=== PATIENT | male | born 1970 | race Hispanic/Latino ===

== ENCOUNTER 2022-11-21 17:54 | Observation (INO) | payer SELFPAY ==
[2022-11-21] MEDS ORDERED: TRANDATE 20 MG/4 ML SYRINGE IV ONE ×2 (18:06→18:15)
[2022-11-21] MEDS ORDERED: BABY ASPIRIN 81 MG CHEW PO ONE (18:06)
[2022-11-21] MEDS ORDERED: MORPHINE SULFATE 4 MG INJ IV ONE (18:06)
[2022-11-21] MEDS ORDERED: NITRO-BID 2% UD PACKETS TOP ONE (18:06)
[2022-11-21] MEDS ORDERED: MORPHINE SULFATE 4 MG INJ ONE (18:15)
[2022-11-21] MEDS ORDERED: Sodium Chloride 0.9% 1000 ML 1,000 ML IV SCH (18:15)
[2022-11-21] MEDS ORDERED: NITRO-BID 2% UD PACKETS ONE (18:15)
--- NOTE | 2022-11-21 18:16 | ERPHSYRPT ---
<PETER PAYTON - Last Filed: 11/21/22 19:06> - History of Present Illness Time Seen by Provider: 11/21/22 18:14 Historian: patient, family Exam Limitations: no limitations Patient Subjective Stated Complaint: C/O chest discomfort that radiates into left arm and left shoulder. Patient states it started around 12noon today when shopping at [place]. Triage Nursing Assessment: Patient ambulated back to ER. He is alert and oriented. No SOB. Skin is warm to touch and moist. M[place]ONOUGH WNL. No edema. No JVD. Physician History: C/O chest discomfort that radiates into left arm and left shoulder. Patient states it started around 12noon today when shopping at [place]. Timing/Duration: today Activities at Onset: activity Quality: pressure Location: substernal Chest Pain Radiation: arm Severity of Pain-Max: moderate Severity of Pain-Current: moderate Modifying Factors: Improves With: nothing Associated Symptoms: headache, No nausea, No vomiting, No palpitations, No heartburn, No shortness of breath, No cough, No hurts to breathe, No diaphoresis, No weakness, No swelling/lump in chest Prior Chest Pain/Cardiac Workup: no prior chest pain Nitro Today/Relief: no nitro taken today Aspirin Treatment Today: no aspirin today Allergies/Adverse Reactions: No Known Drug Allergies Allergy (Verified 11/21/22 17:58) Home Medications: No Reportable Medications [No Reported Medications] 11/21/22 [History] Hx Influenza Vaccination/Date Given: No Travel Risk - International Travel Have you traveled outside of the country in past 3 weeks: No - Coronavirus Screening Are you exhibiting any of the following symptoms?: No Close contact with a COVID-19 positive Pt in past 14-21 Days: No - Vaccine Status Have you recieved a Covid-19 vaccination: No - Review of Systems Constitutional: No Fever, No Chills Eyes: No Symptoms Ears, Nose, & Throat: No Symptoms Respiratory: No Cough, No Dyspnea Cardiac: Chest Pain, No Edema, No Syncope Abdominal/Gastrointestinal: No Abdominal Pain, No Nausea, No Vomiting, No Diarrhea Genitourinary Symptoms: No Dysuria Musculoskeletal: No Back Pain, No Neck Pain Skin: No Rash Neurological: No Dizziness, No Focal Weakness, No Sensory Changes Psychological: No Symptoms Endocrine: No Symptoms All Other Systems: Reviewed and Negative - Past Medical History Pertinent Past Medical History: Yes Cardiac History: Hypertension - Past Surgical History Past Surgical History: No Other Surgical History: No surgical history - Social History Smoking Status: Never smoker Exposure to second hand smoke: No Drug Use: none Patient Lives Alone: No - Physical Exam General Appearance: no apparent distress, alert Eye Exam: PERRL/EOMI, eyes nml inspection Ears, Nose, Throat Exam: normal ENT inspection, moist mucous membranes Neck Exam: normal inspection, non-tender, supple, full range of motion Respiratory Exam: normal breath sounds, lungs clear, No respiratory distress Cardiovascular Exam: regular rate/rhythm, normal heart sounds Gastrointestinal/Abdomen Exam: soft, No tenderness, No mass Back Exam: normal inspection, No CVA tenderness, No vertebral tenderness Extremity Exam: normal inspection, normal range of motion Neurologic Exam: alert, oriented x 3, cooperative, normal mood/affect, sensation nml, No motor deficits Skin Exam: normal color, warm, dry SpO2: 98 - Course Nursing assessment & vital signs reviewed: Yes EKG Interpreted by Me: Sinus Rhythm, Left Bundle Branch Block, Non-specific ST Changes Rhythm Strip: Normal Sinus Rhythm - Radiology Exams Chest X-ray Interpretation: Reviewed by me - Departure Clinical Impression: Hypertensive urgency, Chest pain, rule out acute myocardial infarction Condition: Stable <CARLOZ GURROLA - Last Filed: 11/21/22 20:47> - Nursing Vital Signs Nursing Vital Signs: Initial Vital Signs Temperature 99.7 F 11/21/22 18:00 Pulse Rate 96 H 11/21/22 18:00 Respiratory Rate 18 11/21/22 18:00 Blood Pressure 271/138 11/21/22 18:00 O2 Sat by Pulse Oximetry 98 11/21/22 18:00 Pain Scale Pain Intensity 0 Ordered Tests: Active Orders 24 hr Category Date Time Status Lifestyle Consultant STAT Care 11/21/22 18:08 Active EKG-ER Only STAT Care 11/21/22 18:06 Active Oxygen-ED Only Nasal Cannula 2 lpm Care 11/21/22 18:06 Active CHEST 1 VIEW (PORTABLE) Stat Exams 11/21/22 18:08 Completed CBC W DIFF Stat Lab 11/21/22 18:20 Completed CMP Stat Lab 11/21/22 18:20 Completed NT PRO BNPII Stat Lab 11/21/22 18:20 Completed TROPONIN Q4H Lab 11/21/22 18:20 Completed TROPONIN Q4H Lab 11/21/22 22:15 Ordered TROPONIN Q4H Lab 11/22/22 02:15 Ordered Medication Summary Generic Name Dose Route Start Last Admin Trade Name Freq PRN Reason Stop Dose Admin Hydralazine HCl 10 mg 11/21/22 18:37 Hydralazine Hcl 20 Mg/Ml Vial IV 12/21/22 18:36 [id number] PRN HYPERTENSION Sodium Chloride 1,000 mls @ 50 mls/hr 11/21/22 18:15 11/21/22 18:22 Sodium Chloride 0.9% 1000 Ml IV 12/21/22 18:14 50 mls/hr .Q20H MARQUIS Administration Nicardipine HCl 25 mg/ Sodium 250 mls @ 50 mls/hr 11/21/22 19:38 Chloride IV 12/21/22 19:37 .Q5H PRN HYPERTENSION Protocol Discontinued Medications Generic Name Dose Route Start Last Admin Trade Name Freq PRN Reason Stop Dose Admin Aspirin 81 mg 11/21/22 18:06 11/21/22 18:14 Aspirin 81 Mg Tab.Chew PO 11/21/22 18:07 Not Given STAT ONE Labetalol HCl 10 mg 11/21/22 18:06 11/21/22 18:22 Labetalol Hcl 20 Mg/4 Ml Disp.Syringe IV 11/21/22 18:07 10 mg STAT ONE Administration Labetalol HCl Confirm 11/21/22 18:15 Labetalol Hcl 20 Mg/4 Ml Disp.Syringe Administered 11/21/22 18:16 Dose 20 mg IV .STK-MED ONE Morphine Sulfate 4 mg 11/21/22 18:06 11/21/22 18:29 Morphine Sulfate 4 Mg/Ml Injection IV 11/21/22 18:07 4 mg STAT ONE Administration Morphine Sulfate Confirm 11/21/22 18:15 Morphine Sulfate 4 Mg/Ml Injection Administered 11/21/22 18:16 Dose 4 mg .ROUTE .STK-MED ONE Nitroglycerin 1 gm 11/21/22 18:06 11/21/22 18:26 Nitroglycerin 1 Gm Packet TOP 11/21/22 18:07 1 gm STAT ONE Administration Nitroglycerin Confirm 11/21/22 18:15 Nitroglycerin 1 Gm Packet Administered 11/21/22 18:16 Dose 1 gm .ROUTE .STK-MED ONE Lab/Rad Data: Laboratory Result Diagrams 11/21/22 18:20 11/21/22 18:20 Laboratory Results 11/21/22 11/21/22 11/21/22 Range/Units 18:20 18:20 18:20 WBC (4.0-10.5) x10^3/uL RBC (4.1-5.6) x10^6/uL Hgb (12.5-18.0) g/dL Hct (42-50) % MCV (78-100) fL MCH (26-32) pg MCHC (32-36) g/dL RDW (11.5-14.0) % Plt Count (150-450) x10^3/uL MPV (7.5-11.0) fL Gran % (36.0-66.0) % Immature Gran % (Auto) (0.00-0.4) % Nucleat RBC Rel Count (0.00-0.1) % Eos # (Auto) (0-0.5) x10^3/uL Immature Gran # (Auto) (0.00-0.03) x10^3u/L Absolute Lymphs (auto) (1.0-4.6) x10^3/uL Absolute Monos (auto) (0.0-1.3) x10^3/uL Absolute Nucleated RBC (0.00-0.01) x10^3u/L Lymphocytes % (24.0-44.0) % Monocytes % (0.0-12.0) % Eosinophils % (0.00-5.0) % Basophils % (0.0-0.4) % Absolute Granulocytes (1.4-6.9) x10^3/uL Basophils # (0-0.4) x10^3/uL Sodium 141 (137-145) mmol/L Potassium 3.1 L (3.5-5.1) mmol/L Chloride 102 (98-107) mmol/L Carbon Dioxide 30 (22-30) mmol/L Anion Gap 12.1 (5-15) MEQ/L BUN 16 (9-20) mg/dL Creatinine 1.04 (0.66-1.25) mg/dL Estimated GFR > 60.0 ML/MIN Glucose 119 H (74-106) mg/dL Calcium 8.9 (8.4-10.2) mg/dL Total Bilirubin 0.50 (0.2-1.3) mg/dL AST 32 (17-59) U/L ALT 21 (0-50) U/L Alkaline Phosphatase 88 (38-126) U/L Troponin I 0.031 (0.000-0.034) ng/mL NT-Pro-B Natriuret Pep 562 (<300) pg/mL Serum Total Protein 7.9 (6.3-8.2) g/dL Albumin 4.5 (3.5-5.0) g/dL 11/21/22 Range/Units 18:20 WBC 5.4 (4.0-10.5) x10^3/uL RBC 4.64 (4.1-5.6) x10^6/uL Hgb 14.4 (12.5-18.0) g/dL Hct 42.2 (42-50) % MCV 90.9 (78-100) fL MCH 31.0 (26-32) pg MCHC 34.1 (32-36) g/dL RDW 12.8 (11.5-14.0) % Plt Count 188 (150-450) x10^3/uL MPV 10.8 (7.5-11.0) fL Gran % 66.9 H (36.0-66.0) % Immature Gran % (Auto) 0.4 (0.00-0.4) % Nucleat RBC Rel Count 0.0 (0.00-0.1) % Eos # (Auto) 0.02 (0-0.5) x10^3/uL Immature Gran # (Auto) 0.02 (0.00-0.03) x10^3u/L Absolute Lymphs (auto) 1.36 (1.0-4.6) x10^3/uL Absolute Monos (auto) 0.35 (0.0-1.3) x10^3/uL Absolute Nucleated RBC 0.00 (0.00-0.01) x10^3u/L Lymphocytes % 25.1 (24.0-44.0) % Monocytes % 6.5 (0.0-12.0) % Eosinophils % 0.4 (0.00-5.0) % Basophils % 0.7 (0.0-0.4) % Absolute Granulocytes 3.62 (1.4-6.9) x10^3/uL Basophils # 0.04 (0-0.4) x10^3/uL Sodium (137-145) mmol/L Potassium (3.5-5.1) mmol/L Chloride (98-107) mmol/L Carbon Dioxide (22-30) mmol/L Anion Gap (5-15) MEQ/L BUN (9-20) mg/dL Creatinine (0.66-1.25) mg/dL Estimated GFR ML/MIN Glucose (74-106) mg/dL Calcium (8.4-10.2) mg/dL Total Bilirubin (0.2-1.3) mg/dL AST (17-59) U/L ALT (0-50) U/L Alkaline Phosphatase (38-126) U/L Troponin I (0.000-0.034) ng/mL NT-Pro-B Natriuret Pep (<300) pg/mL Serum Total Protein (6.3-8.2) g/dL Albumin (3.5-5.0) g/dL - Progress Progress: improved, re-examined Air Movement: good Progress Note: 11/21/22 20:43 52-year-old is checked out to me at shift change from with uncontrolled hypertension and chest pain. Patient is given labetalol/hydralazine/Nitropaste, chest pain improved but still have blood pressure in 200s. Denies any headache. Nonfocal neuro exam during my evaluation. EKG did not show any ST elevation and negative initial troponins. Patient does not take any blood pressure medications at home. I have started him on Cardene. I believe patient would benefit with admission and monitoring blood pressure, starting on oral medications. I have discussed with Dr. Barragan, reviewed history, work-up and patient is excepted for admission. I have discussed the results of work-up with patient and family, recommended admission which they understand and agree. Blood Culture(s) Obtained: No Antibiotics given: No Discussed with : Other (Dr. Preston 2020 5 PM) Will see patient in: hospital (observation) Counseled pt/family regarding: lab results, diagnosis, rad results Medical Desision Making - Independent Historian Additional History obtained from: Spouse - Discussion of managment Care discussed with:: hospitalist (Dr. Barragan 2024) Reviewed:: Test results Agreed on:: Treatment plan, place in obs Will see patient: in hospital - Diagnostic Testing Diagnostic test were ordered, analyzed, and reviewed by me: Yes Radiological Interpretation: Reviewed by me - Risk of complications The pt has a high risk of morbidity or mortality based on: Decision regarding hospitilization or escalation of hosp level of care - Departure Departure Disposition: Observation Critical Care Time: No
[2022-11-21 18:27] LABS: Absolute Neutrophil Ct (ANC) 3.62 x10^3/uL (1.4-6.9); BASOPHIL % 0.7 % (0.0-0.4); Basophil (Absolute #) 0.04 x10^3/uL (0-0.4); Eosinophil % 0.4 % (0.00-5.0); Eosinophil (Absolute #) 0.02 x10^3/uL (0-0.5); Hematocrit 42.2 % (42-50); Hemoglobin 14.4 g/dL (12.5-18.0); IMMATURE GRAN # 0.02 x10^3u/L (0.00-0.03); IMMATURE GRAN % 0.4 % (0.00-0.4); Lymphocyte (Absolute #) 1.36 x10^3/uL (1.0-4.6); Lymphocytes % 25.1 % (24.0-44.0); Mean Cell Volume 90.9 fL (78-100); Mean Corpuscular Hgb Concent. 34.1 g/dL (32-36); Mean Platelet Volume 10.8 fL (7.5-11.0); Monocyte (Absolute #) 0.35 x10^3/uL (0.0-1.3); Monocytes % 6.5 % (0.0-12.0); Neutrophil % 66.9 % (36.0-66.0); Platelet Count 188 x10^3/uL (150-450); Red Blood Count 4.64 x10^6/uL (4.1-5.6); Red Cell Distribution Width 12.8 % (11.5-14.0); White Blood Count 5.4 x10^3/uL (4.0-10.5)
[2022-11-21] MEDS ORDERED: APRESOLINE 20 MG/ML INJ IV PRN (18:37)
[2022-11-21 18:42] LABS: ALBUMIN 4.5 g/dL (3.5-5.0); ALKALINE PHOSPHATASE 88 U/L (38-126); ANION GAP 12.1 MEQ/L (5-15); BLOOD UREA NITROGEN 16 mg/dL (9-20); CHLORIDE 102 mmol/L (98-107); Calcium 8.9 mg/dL (8.4-10.2); Carbon Dioxide 30 mmol/L (22-30); Creatinine 1 1.04 mg/dL (0.66-1.25); EST GLOMERULAR FILTRATION RATE > 60.0 ML/MIN; Glucose 119 mg/dL (74-106); Potassium 3.1 mmol/L (3.5-5.1); SGOT/AST 32 U/L (17-59); SGPT/ALT 21 U/L (0-50); SODIUM 141 mmol/L (137-145); Total Protein 7.9 g/dL (6.3-8.2)
[2022-11-21] MEDS ORDERED: CARDENE*** 25 MG in Sodium Chloride 0.9% 250 ML 240 ML IV PRN (19:38)
--- NOTE | 2022-11-21 20:09 | XRAY ---
Indication: Chest pain. Comparison: None Portable apical lordotic chest demonstrates normal heart and lungs. Bony thorax intact.
[2022-11-21] MEDS ORDERED: Sodium Chloride 0.9% 250 ML 250 ML IV ONE (20:52)
[2022-11-21] MEDS ORDERED: CARDENE IV ONE (20:52)
[2022-11-21] MEDS ORDERED: MORPHINE SULFATE 2 MG INJ IV PRN (22:21)
[2022-11-21] MEDS ORDERED: DUONEB 0.5-3 MG/3 ml Neb IH PRN (22:21)
[2022-11-21] MEDS ORDERED: Zofran 4 MG/2 ML VIAL IV PRN (22:21)
[2022-11-21] MEDS ORDERED: TYLENOL 325 MG PO PRN (22:21)
[2022-11-22] MEDS ORDERED: K-LYTE PO ONE (00:24)
--- NOTE | 2022-11-22 00:33 | PCM.HP ---
History of Present Illness - Chief Complaint Chief Complaint: Hypertensive urgency. Chest pain rule out acute DE Date: 11/22/22 History of Present Illness: This is a 52-year-old male admitted to the ICU this evening for hypertensive emergency. He has a past medical history of untreated hypertension. He presented to the ED this evening with complaints of chest discomfort 3/10 that radiated to his left arm and his left shoulder that started approximately 6 hours before arrival this was associated with dizziness. He reports he was on antihypertensives 2 years ago but stopped them. Initial vital signs in the ER temperature 99.7, heart rate 96, respiratory rate 18, blood pressure 271/138, blood pressure taken 6 minutes later was 236/123, sat 98%. Labs significant for WBC 5.4, hemoglobin 14, platelets 188, sodium 141, potassium 3.1, creatinine 1.0, troponin 0.031, BNP 562. In the ED he received labetalol 10 mg IV x1, aspirin 81 mg, morphine 4 mg, hydralazine 10 mg nitroglycerin topical and started on a Cardene drip. - Review of Systems Eyes: No Symptoms Ears, Nose, & Throat: No Symptoms Respiratory: No Symptoms Cardiac: Chest Pain Abdominal/Gastrointestinal: No Symptoms Genitourinary Symptoms: No Symptoms Musculoskeletal: No Symptoms Skin: No Symptoms Neurological: No Symptoms Psychological: No Symptoms Endocrine: No Symptoms Hematologic/Lymphatic: No Symptoms Immunological/Allergic: No Symptoms Medications & Allergies Home Medications: Home Medication List No Reportable Medications [No Reported Medications] 11/21/22 [History Confirmed 11/21/22] Allergies/Adverse Reactions: Allergies Allergy/AdvReac Type Severity Reaction Status Date / Time No Known Drug Allergies Allergy Verified 11/21/22 17:58 - Past Medical History Past Medical History: Yes Cardiac History: Hypertension - Past Surgical History Past Surgical History: No Other Surgical History: No surgical history - Social History Smoking Status: Never smoker Exposure to second hand smoke: No Alcohol: None Drug Use: none - Physical Exam Vital Signs: Vital Signs - 24 hr Temp Pulse Resp BP BP Pulse Ox 11/21/22 22:05 99.7 F 93 H 18 164/92 97 11/21/22 21:50 195/115 11/21/22 21:40 127 H 22 172/108 11/21/22 21:30 104 H 29 H 171/96 11/21/22 21:20 95 H 18 165/86 11/21/22 21:10 78 12 174/94 98 11/21/22 21:03 80 17 176/107 98 11/21/22 21:00 70 13 177/103 98 11/21/22 20:45 71 15 191/106 99 11/21/22 20:30 68 14 184/113 98 11/21/22 20:15 72 13 187/108 187/108 98 11/21/22 20:00 74 13 188/105 96 11/21/22 19:45 70 11 L 200/105 95 11/21/22 19:30 71 16 178/106 96 11/21/22 19:15 63 12 192/105 95 11/21/22 19:06 98 11/21/22 19:00 66 12 208/113 96 11/21/22 18:45 71 14 208/124 93 L 11/21/22 18:30 83 18 212/112 97 11/21/22 18:15 83 16 221/124 96 11/21/22 18:06 236/123 98 11/21/22 18:00 99.7 F 96 H 18 271/138 98 General Appearance: no apparent distress Neurologic Exam: alert, oriented x 3 Eye Exam: PERRL/EOMI Ears, Nose, Throat Exam: normal ENT inspection Respiratory Exam: normal breath sounds Cardiovascular Exam: regular rate/rhythm Gastrointestinal/Abdomen Exam: soft Extremity Exam: normal inspection Skin Exam: normal color Results - Labs Lab/Micro Results: Lab Results-Last 24 Hours 11/21/22 11/21/22 11/21/22 Range/Units 18:20 18:20 18:20 WBC 5.4 (4.0-10.5) x10^3/uL RBC 4.64 (4.1-5.6) x10^6/uL Hgb 14.4 (12.5-18.0) g/dL Hct 42.2 (42-50) % MCV 90.9 (78-100) fL MCH 31.0 (26-32) pg MCHC 34.1 (32-36) g/dL RDW 12.8 (11.5-14.0) % Plt Count 188 (150-450) x10^3/uL MPV 10.8 (7.5-11.0) fL Gran % 66.9 H (36.0-66.0) % Immature Gran % (Auto) 0.4 (0.00-0.4) % Nucleat RBC Rel Count 0.0 (0.00-0.1) % Eos # (Auto) 0.02 (0-0.5) x10^3/uL Immature Gran # (Auto) 0.02 (0.00-0.03) x10^3u/L Absolute Lymphs (auto) 1.36 (1.0-4.6) x10^3/uL Absolute Monos (auto) 0.35 (0.0-1.3) x10^3/uL Absolute Nucleated RBC 0.00 (0.00-0.01) x10^3u/L Lymphocytes % 25.1 (24.0-44.0) % Monocytes % 6.5 (0.0-12.0) % Eosinophils % 0.4 (0.00-5.0) % Basophils % 0.7 (0.0-0.4) % Absolute Granulocytes 3.62 (1.4-6.9) x10^3/uL Basophils # 0.04 (0-0.4) x10^3/uL Sodium 141 (137-145) mmol/L Potassium 3.1 L (3.5-5.1) mmol/L Chloride 102 (98-107) mmol/L Carbon Dioxide 30 (22-30) mmol/L Anion Gap 12.1 (5-15) MEQ/L BUN 16 (9-20) mg/dL Creatinine 1.04 (0.66-1.25) mg/dL Estimated GFR > 60.0 ML/MIN Glucose 119 H (74-106) mg/dL Calcium 8.9 (8.4-10.2) mg/dL Total Bilirubin 0.50 (0.2-1.3) mg/dL AST 32 (17-59) U/L ALT 21 (0-50) U/L Alkaline Phosphatase 88 (38-126) U/L Troponin I 0.031 (0.000-0.034) ng/mL NT-Pro-B Natriuret Pep (<300) pg/mL Serum Total Protein 7.9 (6.3-8.2) g/dL Albumin 4.5 (3.5-5.0) g/dL 11/21/22 11/21/22 Range/Units 18:20 21:55 WBC (4.0-10.5) x10^3/uL RBC (4.1-5.6) x10^6/uL Hgb (12.5-18.0) g/dL Hct (42-50) % MCV (78-100) fL MCH (26-32) pg MCHC (32-36) g/dL RDW (11.5-14.0) % Plt Count (150-450) x10^3/uL MPV (7.5-11.0) fL Gran % (36.0-66.0) % Immature Gran % (Auto) (0.00-0.4) % Nucleat RBC Rel Count (0.00-0.1) % Eos # (Auto) (0-0.5) x10^3/uL Immature Gran # (Auto) (0.00-0.03) x10^3u/L Absolute Lymphs (auto) (1.0-4.6) x10^3/uL Absolute Monos (auto) (0.0-1.3) x10^3/uL Absolute Nucleated RBC (0.00-0.01) x10^3u/L Lymphocytes % (24.0-44.0) % Monocytes % (0.0-12.0) % Eosinophils % (0.00-5.0) % Basophils % (0.0-0.4) % Absolute Granulocytes (1.4-6.9) x10^3/uL Basophils # (0-0.4) x10^3/uL Sodium (137-145) mmol/L Potassium (3.5-5.1) mmol/L Chloride (98-107) mmol/L Carbon Dioxide (22-30) mmol/L Anion Gap (5-15) MEQ/L BUN (9-20) mg/dL Creatinine (0.66-1.25) mg/dL Estimated GFR ML/MIN Glucose (74-106) mg/dL Calcium (8.4-10.2) mg/dL Total Bilirubin (0.2-1.3) mg/dL AST (17-59) U/L ALT (0-50) U/L Alkaline Phosphatase (38-126) U/L Troponin I 0.038 H* (0.000-0.034) ng/mL NT-Pro-B Natriuret Pep 562 (<300) pg/mL Serum Total Protein (6.3-8.2) g/dL Albumin (3.5-5.0) g/dL - Radiology Impressions Radiology Exams & Impressions: Radiology Procedures Category Date Time Status CHEST 1 VIEW (PORTABLE) Stat Exams 11/21/22 18:08 Completed Assessment/Plan (1) Chest pain, rule out acute myocardial infarction Current Visit: Yes Status: Acute Code(s): R07.9 - CHEST PAIN, UNSPECIFIED (2) Hypertensive urgency Current Visit: Yes Status: Acute Assessment & Plan: ASSESSMENT #Hypertensive emergency #Chest pain #Hypokalemia PLAN -Cardene drip to decrease blood pressure goal 160-180 -Start oral antihypertensives -Replete potassium follow BMP -Trend troponin -Obtain echo, lipid panel, TSH, A1c Entire encounter performed via telemedicine Critical care time 60 minutes Code(s): I16.0 - HYPERTENSIVE URGENCY Telemedicine Encounter - Telemedicine Encounter Telemedicine Encounter: The entirety of this encounter was performed via Telemedicine"
[2022-11-22] MEDS ORDERED: CARDENE IV ONE (01:16)
[2022-11-22] MEDS ORDERED: Sodium Chloride 0.9% 250 ML 250 ML IV ONE (01:20)
[2022-11-22 02:51] LABS: Absolute Neutrophil Ct (ANC) 3.95 x10^3/uL (1.4-6.9); BASOPHIL % 0.7 % (0.0-0.4); Basophil (Absolute #) 0.04 x10^3/uL (0-0.4); Eosinophil (Absolute #) 0.06 x10^3/uL (0-0.5); Hematocrit 40.7 % (42-50); Hemoglobin 13.7 g/dL (12.5-18.0); IMMATURE GRAN # 0.01 x10^3u/L (0.00-0.03); IMMATURE GRAN % 0.2 % (0.00-0.4); Lymphocyte (Absolute #) 1.44 x10^3/uL (1.0-4.6); Lymphocytes % 24.2 % (24.0-44.0); Mean Cell Volume 91.7 fL (78-100); Mean Corpuscular Hemoglobin 30.9 pg (26-32); Mean Corpuscular Hgb Concent. 33.7 g/dL (32-36); Mean Platelet Volume 10.9 fL (7.5-11.0); Monocyte (Absolute #) 0.46 x10^3/uL (0.0-1.3); Monocytes % 7.7 % (0.0-12.0); Neutrophil % 66.2 % (36.0-66.0); Platelet Count 177 x10^3/uL (150-450); Red Blood Count 4.44 x10^6/uL (4.1-5.6); Red Cell Distribution Width 12.8 % (11.5-14.0)
[2022-11-22 02:59] LABS: ALBUMIN 4.1 g/dL (3.5-5.0); ALKALINE PHOSPHATASE 68 U/L (38-126); ANION GAP 9.6 MEQ/L (5-15); BLOOD UREA NITROGEN 15 mg/dL (9-20); CHLORIDE 104 mmol/L (98-107); Calcium 8.7 mg/dL (8.4-10.2); Carbon Dioxide 31 mmol/L (22-30); Creatinine 1 0.98 mg/dL (0.66-1.25); EST GLOMERULAR FILTRATION RATE > 60.0 ML/MIN; Glucose 104 mg/dL (74-106); SGOT/AST 28 U/L (17-59); SGPT/ALT 19 U/L (0-50); SODIUM 140 mmol/L (137-145); Total Protein 7.2 g/dL (6.3-8.2)
[2022-11-22 03:07] LABS: Potassium 3.9 mmol/L (3.5-5.1)
[2022-11-22 03:42] LABS: MAGNESIUM 2.7 mg/dL (1.6-2.3); Risk Ratio 4.6; TSH, 3RD Generation 3.06 mIU/L (0.47-4.68)
[2022-11-22] MEDS: NORVASC 5 MG PO SCH (08:57)
[2022-11-22] MEDS ORDERED: PROTONIX 40 MG IV IV SCH (10:00)
[2022-11-22] MEDS ORDERED: Apresoline 25 MG TABLET PO ONE (12:28)
[2022-11-22] MEDS ORDERED: Zestril 20 MG PO ONE (12:28)
--- NOTE | 2022-11-22 21:22 | TM.IN ---
Tele-Medicine Incident Note - Incident Note Tel-Medicine Incident Note: Patient seen earlier this morning by overnight physician. In brief, history of hypertension, off medications for the last 2 years, who presented with hypertensive emergency with blood pressure at 240/130, with substernal chest pain rating to the left arm. Serial troponins were negative, and patient was initially placed on a nicardipine drip. 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 Initially we had discussed discharging patient on p.o. lisinopril and had a follow-up with outpatient blood pressure checks. However, blood pressure began to raise again throughout the afternoon, briefly up to 190/100. Patient was kept for further observation and to ensure stability of his blood pressure. His chest pain has been resolved since before arriving to the ED. He has no dyspnea, vision changes, or headache now. The remainder of his labs and vitals were unremarkable. We will continue patient on amlodipine 10 mg and start patient on lisinopril 20 mg. Of note, the amlodipine will likely not take full effect until tomorrow. Repeat BMP and CBC in the morning. Echocardiogram was performed, but read not yet available. Blood pressure controlled in the morning, will plan to discharge on lisinopril, due to cost reasons. Could consider changing to lisinopril/hydrochlorothiazide, which is also readily available cheaply despite being on combination medication. Telemedicine Encounter - Telemedicine Encounter Telemedicine Encounter: The entirety of this encounter was performed via Telemedicine"
[2022-11-23 05:11] LABS: Hemoglobin 13.3 g/dL (12.5-18.0); Mean Corpuscular Hemoglobin 30.6 pg (26-32); Mean Corpuscular Hgb Concent. 33.3 g/dL (32-36); Mean Platelet Volume 11.4 fL (7.5-11.0); Platelet Count 171 x10^3/uL (150-450); Red Blood Count 4.35 x10^6/uL (4.1-5.6); Red Cell Distribution Width 13.1 % (11.5-14.0)
[2022-11-23 05:39] LABS: ANION GAP 9.4 MEQ/L (5-15); BLOOD UREA NITROGEN 20 mg/dL (9-20); CHLORIDE 103 mmol/L (98-107); Calcium 8.6 mg/dL (8.4-10.2); Carbon Dioxide 29 mmol/L (22-30); Creatinine 1 1.06 mg/dL (0.66-1.25); EST GLOMERULAR FILTRATION RATE > 60.0 ML/MIN; Glucose 107 mg/dL (74-106); Potassium 3.2 mmol/L (3.5-5.1); SODIUM 138 mmol/L (137-145)
[2022-11-23] MEDS ORDERED: Apresoline 25 MG TABLET PO ONE (07:30)
[2022-11-23] MEDS ORDERED: Klor Con PO ONE (08:11)
[2022-11-23] MEDS ORDERED: Apresoline 25 MG TABLET PO PRN (08:11)
--- NOTE | 2022-11-23 08:17 | ECHO ---
Transthoracic echocardiographic examination and color Doppler was done on 11/22/2022. INDICATION: Chest pains. IMPRESSION: 1) NO REGIONAL WALL MOTION ABNORMALITY. ESTIMATED GLOBAL LEFT VENTRICULAR EJECTION FRACTION BETWEEN 55 TO 60%. 2) TRACE MITRAL REGURGITATION. 3) MILD TRICUSPID REGURGITATION. RIGHT VENTRICULAR SYSTOLIC PRESSURE OF 28 MM OF MERCURY. 4) MODERATE LEFT VENTRICULAR HYPERTROPHY WITH SOME FEATURES OF HYPERTROPHIC CARDIOMYOPATHY. The left ventricle is visualized and demonstrated adequate motion of all the segments. Estimated global left ventricular ejection fraction between 55 to 60%. There is moderate left ventricular hypertrophy with some signs of hypertrophic cardiomyopathy. The mitral valve was seen and this opens adequately. There is trace mitral regurgitation. Left atrium is normal. The aortic valve opens adequately. The peak gradient across the aortic valve is 6 mm of Mercury. The right side chambers are normal. There is mild tricuspid regurgitation. The right ventricular systolic pressure of 28 mm of Mercury.
[2022-11-23] MEDS: NORVASC 5 MG PO SCH (08:53)
[2022-11-23] MEDS: Zestril 20 MG PO SCH (08:54)
[2022-11-23] MEDS ORDERED: Zestril 20 MG PO SCH (10:00)
[2022-11-23] MEDS: hydroDIURIL 25 MG PO SCH (11:14)
--- NOTE | 2022-11-23 22:28 | PCM.NOTE ---
Date and Time: 11/23/222221 Subjective Assessment: No acute events overnight. However, patient's blood pressure remains labile. Improved on the 140s, but then go back up to 190s over 100s over 210s over 110s. Discussed results of echocardiogram with patient, and explained that the hypertensive cardiopathy is a sign of how bad his blood pressure has been for a long time, and is a marker for serious events that can happen in the future if he does not control his blood pressure better going forward. Objective Exam Comments: GENERAL: Sitting up in bed in no acute distress NEURO: Alert, oriented x3, normal affect CV: Regular rate and rhythm, no murmurs, no edema PULM: Clear to auscultation bilaterally, no work of breathing ABD: Soft, nontender, nondistended OBJECTIVE DATA Vital Signs: Vital Signs - 24 hr Temp Pulse Resp BP BP Pulse Ox 11/23/22 20:00 97.3 F 61 19 153/80 95 11/23/22 16:00 97.4 F 78 21 189/99 98 11/23/22 12:00 97.3 F 76 23 144/81 179/105 99 11/23/22 11:00 97.3 F 76 23 179/105 99 11/23/22 10:00 97.6 F 75 21 168/99 97 11/23/22 09:00 97.6 F 78 23 206/106 98 11/23/22 08:30 191/101 11/23/22 08:00 212/110 11/23/22 07:49 97.6 F 71 14 191/106 97 11/23/22 07:14 97 11/23/22 06:59 68 191/112 11/23/22 06:00 174/96 11/23/22 05:00 78 140/95 11/23/22 04:00 98.1 F 65 18 152/87 97 11/23/22 03:00 54 L 175/99 11/23/22 02:00 144/81 11/23/22 01:00 58 L 167/91 11/23/22 00:00 52 L 11/22/22 23:59 98.1 F 53 L 20 153/85 98 11/22/22 23:00 52 L 152/89 Pain Assessment - Last Documented Pain Intensity 0 Pain Scale Used 0-10 Pain Scale Intake and Output: Intake & Output 11/21/22 11/22/22 11/23/22 11/24/22 11:59 11:59 11:59 11:59 Intake Total 300 480 120 Output Total 780 Balance -480 480 120 Weight 76.4 kg Lab Results: Lab Results-Last 24 Hours 11/23/22 11/23/22 Range/Units 04:23 04:23 WBC 6.0 (4.0-10.5) x10^3/uL RBC 4.35 (4.1-5.6) x10^6/uL Hgb 13.3 (12.5-18.0) g/dL Hct 40.0 L (42-50) % MCV 92.0 (78-100) fL MCH 30.6 (26-32) pg MCHC 33.3 (32-36) g/dL RDW 13.1 (11.5-14.0) % Plt Count 171 (150-450) x10^3/uL MPV 11.4 H (7.5-11.0) fL Sodium 138 (137-145) mmol/L Potassium 3.2 L (3.5-5.1) mmol/L Chloride 103 (98-107) mmol/L Carbon Dioxide 29 (22-30) mmol/L Anion Gap 9.4 (5-15) MEQ/L BUN 20 (9-20) mg/dL Creatinine 1.06 (0.66-1.25) mg/dL Estimated GFR > 60.0 ML/MIN Glucose 107 H (74-106) mg/dL Calcium 8.6 (8.4-10.2) mg/dL Radiology Exams: Radiology Procedures Category Date Time Status ECHO W/2D AND DOPPLER [US] Routine Exams 11/22/22 00:26 Draft Echocardiogram: No regional wall motion abnormalities. EF 55 to 60%. Moderate left ventricular hypertrophy with some features of hypertrophic cardiomyopathy. Multi-Disciplinary Progress Notes: Multi-Disciplinary Progress Notes 11/23/22 11:00 Case Management Note by Maria Guadalupe Styles NO CHANGE IN DC PLANS AT THIS TIME. PATIENT TO RETURN HOME WITH AT TIME OF DC Initialized on 11/23/22 11:00 - END OF NOTE Assessment/Plan (1) Hypertensive urgency Current Visit: Yes Status: Acute Assessment & Plan: [id number] man with history of hypertension, off medications, who presented with hypertensive and chest pain. ## Hypertensive emergency patient was quickly weaned off nicardipine, and moved to oral medications. However, he has had recurrence of his severe hypertension in the 220s over 110s. We have been consistently increasing his blood pressure medications, but it has remained difficult. Echocardiogram shows left ventricular atrophy, consistent with longstanding nature of his hypertension. Continue amlodipine 10 mg daily Increase lisinopril to 40 mg daily Add hydrochlorothiazide 25 mg daily Add PRN hydralazine 25 mg PRN SBP greater than 180 Patient instructed on home blood pressure monitoring by nurse today ## Chest pain resolved now. Still troponins were negative. No events on telemetry. ## Hypokalemia recurrent today. Give KCl 40 mEq p.o. x1 Repeat BMP in the morning CODE STATUS: Full code Prophylaxis: Ambulate Diet: Regular diet Dispo: Likely home tomorrow if maintain systolic blood pressure less than 180. Code(s): I16.0 - HYPERTENSIVE URGENCY Telemedicine Encounter - Telemedicine Encounter Telemedicine Encounter: The entirety of this encounter was performed via Telemedicine"
[2022-11-24 05:43] LABS: ANION GAP 9.7 MEQ/L (5-15); BLOOD UREA NITROGEN 22 mg/dL (9-20); CHLORIDE 100 mmol/L (98-107); Carbon Dioxide 31 mmol/L (22-30); Creatinine 1 1.03 mg/dL (0.66-1.25); EST GLOMERULAR FILTRATION RATE > 60.0 ML/MIN; Glucose 106 mg/dL (74-106); MAGNESIUM 2.4 mg/dL (1.6-2.3); Potassium 3.2 mmol/L (3.5-5.1); SODIUM 137 mmol/L (137-145)
[2022-11-24 06:59] VITALS: BP 165/95; PULSE 71; RESP 18; TEMP 97.5; O2SAT 98
[2022-11-24] MEDS ORDERED: Klor Con PO ONE (07:28)
[2022-11-24] MEDS: Zestril 20 MG PO SCH (09:47)
[2022-11-24] MEDS: hydroDIURIL 25 MG PO SCH (09:47)
[2022-11-24] MEDS: NORVASC 5 MG PO SCH (09:47)
--- NOTE | 2022-11-24 10:13 | PCM.DS ---
Discharge Summary Date of Admission: 11/21/22 21:59 Date of Discharge: 11/24/22 Admitting Physician: RAVINDER MATHIS MD Primary Care Provider: NO FAMILY DOCTOR Allergies Allergies No Known Drug Allergies Allergy (Verified 11/21/22 17:58) Hospital Summary - Hospital Course Hospital Course: 52-year-old man with history of hypertension, off medications, who presented with 6 hours of chest pain radiating to his left arm and shoulder. He was found to have severe hypertension, 271/138, on presentation to the ED. His initial cardiac work-up was negative. He was admitted to ICU with nicardipine drip. His serial troponins were negative, and he had no evidence of further chest pain. He was quickly weaned off of nicardipine, and started on oral antihypertensives. However, his blood pressure remained difficult to control, frequently bouncing back up into the 220/110 range. He eventually had additional oral antihypertensive added, until he was finally controlled on amlodipine 10, lisinopril 40, and hydrochlorothiazide 25 mg daily. At that point, his blood pressure was more stable in the 140s to 160s over 80s to 90s range. Echocardiogram was obtained that showed no regional wall motion abnormalities, normal EF, but showed moderate left ventricular hypertrophy. We had multiple discussions with the patient, and at least one of his , regarding the importance of managing his blood pressure at home. That even when he is feeling fine, he remains at long-term damage of cardiovascular disease and cardiomyopathy if he does not control his blood pressure better. He wants to try and work on dietary and activity controls, which I stated would help, but given the severity of his hypertension, he would likely always be on at least one blood pressure medication. He was given resources on free and low-cost clinics, as patient lacks health insurance. We have arranged for a follow-up with Dr. Roel Segura on 12/07 to repeat blood pressure and adjust meds as needed. Greater than 30 minutes were spent arranging discharge. - Vitals & Intake/Output Vital Signs: Vital Signs Temperature 97.5 F 11/24/22 06:58 Pulse Rate 71 11/24/22 06:58 Respiratory Rate 18 11/24/22 06:58 Blood Pressure 165/95 11/24/22 06:58 O2 Sat by Pulse Oximetry 98 11/24/22 06:58 Intake & Output: Intake & Output 11/21/22 11/22/22 11/23/22 11/24/22 11:59 11:59 11:59 11:59 Intake Total 300 480 720 Output Total 780 Balance -480 480 720 Weight 76.4 kg 76.2 kg - Lab Result Diagrams: 11/23/22 04:23 11/24/22 05:06 Lab Results-Last 24 Hrs: Lab Results-Last 24 Hours 11/24/22 Range/Units 05:06 Sodium 137 (137-145) mmol/L Potassium 3.2 L (3.5-5.1) mmol/L Chloride 100 (98-107) mmol/L Carbon Dioxide 31 H (22-30) mmol/L Anion Gap 9.7 (5-15) MEQ/L BUN 22 H (9-20) mg/dL Creatinine 1.03 (0.66-1.25) mg/dL Estimated GFR > 60.0 ML/MIN Glucose 106 (74-106) mg/dL Calcium 9.0 (8.4-10.2) mg/dL Magnesium 2.4 H (1.6-2.3) mg/dL - Radiology Exams Ordered Rad Exams-Entire Visit: Chest x-ray no infiltrates, effusions, or edema. Echocardiogram no regional wall motion abnormality. Global LVEF 55 to 60%. Moderate left ventricular hypertrophy with some features of hypertrophic cardiomyopathy. - Procedures and Test Procedures and Tests throughout Hospitalization: Therapy Orders & Screens 11/22/22 00:22 Respiratory Therapy Assessment DAILY Comment: Diagnosis: Hypertensive urgency. Chest pain rule out acute [place] 11/23/22 07:14 Respiratory Therapy Assessment DAILY Comment: Diagnosis: Hypertensive urgency. Chest pain rule out acute [place] Discharge Exam Comments: GENERAL: Sitting up in bed in no acute distress NEURO: Alert, oriented x3, normal affect CV: Regular rate and rhythm, no murmurs, no edema PULM: Clear to auscultation bilaterally, no work of breathing ABD: Soft, nontender, nondistended Final Diagnosis/Problem List - Final Discharge Diagnosis/Problem (1) Hypertensive urgency Current Visit: Yes Status: Acute Code(s): I16.0 - HYPERTENSIVE URGENCY Telemedicine Encounter - Telemedicine Encounter Telemedicine Encounter: The entirety of this encounter was performed via Telemedicine" - Discharge Discharge Date: 11/24/22 Disposition: Home, Self-Care Condition: Stable Prescriptions: New RX: Hydrochlorothiazide 25 mg [hydroDIURIL 25 MG] 25 mg PO DAILY #30 tablet lisinopriL [Lisinopril] 40 mg PO DAILY #30 tablet RX: Potassium Chloride 40 meq PO DAILY #60 tablet Amlodipine Besylate [Norvasc] 10 mg PO DAILY #30 tablet Instructions: High Blood Pressure (DC) Additional Instructions: -YOU CAN GET YOUR BLOOD PRESSURE CHECKED AT THE [facility] [address] [place] -. THEIR HOURS ARE - 8-5 AND 8-4. IT WOULD BE BETTER TO CALL AHEAD AT [phone] TO MAKE SURE A NURSE IS IN AND AVAILABLE. THE [facility] DEPART[facility] ALSO CAN SEE IF YOU QUALIFY FOR A PROGRAM FOR INSURANCE THRU MEDICAID -[facility]AR[facility] HAS A MACHINE AVAILABLE AT THEIR PHARMACY WELL -A PHARMACIST AT [place] [facility] CAN CHECK YOUR BLOOD PRESSURE WELL. Follow up with: TAB PENDLETON DO [ACTIVE STAFF] - Forms: Discharge Instructions, Work/School Release Form
== END 2022-11-24 10:17 | disposition home or self-care (01) ==
LOC: ED 17:54 → ICU 21:59
PROVIDERS: ADMIT Internal Medicine; ATTEND Internal Medicine
DX: I16.0 Hypertensive urgency (principal); R07.9 Chest pain, unspecified; E87.6 Hypokalemia; I10 Essential (primary) hypertension; Z20.828 Contact with and (suspected) exposure to other viral communicable diseases
CPT/HCPCS: 36415; 71045; 80048; 80053; 80061; 83036; 83721; 83735; 83880; 84443; 84484; 85025; 85027; 93005; 93041; 93306; 96374; 96375; 99285; Q3014; 93268; J2270; A9270-GY; G0378